=== PATIENT | male | born 1995 | race Caucasian/White ===

== ENCOUNTER 2017-03-11 22:08 | Emergency (ER) | payer BC ==
[~2017-03-11] VITALS: Ht 180.3 cm; Wt 62.8 kg
[2017-03-11] MEDS ORDERED: MEDROL DOSEPAK4 MG PO (22:50)
[2017-03-11 23:38] VITALS: BP 115/65
== END 2017-03-11 23:38 | disposition home or self-care (01) ==
LOC: EME 22:08
DX: M54.5 Low back pain (principal)
CPT/HCPCS: 99281; 99283; J1885